=== PATIENT | female | born 1960 | race Caucasian/White ===

== ENCOUNTER 2016-10-26 10:21 | Emergency (ER) | payer MEDICAID ==
[~2016-10-26] VITALS: Ht 160 cm; Wt 47.9 kg
[2016-10-26] MEDS ORDERED: ASPIRIN 81 MG TABLET CHEW ONE (10:59)
[2016-10-26] MEDS ORDERED: NITROGLYCERIN SINGLE TAB 0.4 MG SL ONE (10:59)
[2016-10-26] MEDS ORDERED: ASPIRIN 81 MG TABLET CHEW PO ONE (11:00)
[2016-10-26] MEDS ORDERED: SODIUM CHLORIDE FLUSH 10ML SYR IVF ONE (11:00)
[2016-10-26] MEDS: NITROGLYCERIN SINGLE TAB 0.4 MG SL PRN ×3 (11:05→11:20)
[2016-10-26] MEDS ORDERED: METH500T97 PO (11:08)
[2016-10-26] MEDS ORDERED: GABA300C10 PO (11:08)
[2016-10-26 11:19] LABS: HEMOGLOBIN 15.4 g/dL (11.7-16.4)
[2016-10-26 11:28] LABS: ASPARTATE AMINO TRANSFERASE 17 U/L (15-37); BLOOD UREA NITROGEN 10 mg/dL (7-18)
[2016-10-26 12:15] VITALS: BP 110/72
== END 2016-10-26 12:55 | disposition left against medical advice (07) ==
LOC: ED 12:14
DX: J20.9 Acute bronchitis, unspecified (principal); B96.89 Other specified bacterial agents as the cause of diseases classified elsewhere; I20.9 Angina pectoris, unspecified; M54.30 Sciatica, unspecified side
CPT/HCPCS: 36415; 71010; 80053; 83605; 83880; 84484; 85025; 85379; 85610; 85730; 87040; 93005

== ENCOUNTER 2017-02-09 11:30 | Emergency (ER) | payer MEDICAID ==
[~2017-02-09] VITALS: Ht 157.5 cm; Wt 48.9 kg
[~2017-02-09 11:30] MED LIST: GABA300C10 PO; METH500T97 PO
[2017-02-09 13:02] VITALS: BP 112/78
[2017-02-09] MEDS ORDERED: AZITHROMYCIN 500 MG TABLET PO ONE (13:30)
[2017-02-09] MEDS ORDERED: CEFTRIAXONE 250 MG IM ONE (13:30)
[2017-02-09] MEDS ORDERED: CEFTRIAXONE 250 MG ONE (13:32)
[2017-02-09] MEDS ORDERED: AZITHROMYCIN 250 MG TABLET ONE (13:33)
== END 2017-02-09 13:50 | disposition home or self-care (01) ==
LOC: ED 13:00
DX: N89.8 Other specified noninflammatory disorders of vagina (principal); F17.200 Nicotine dependence, unspecified, uncomplicated
CPT/HCPCS: 87210; 87491; 87591; 87808; 96372; 99284; J0696

== ENCOUNTER 2017-10-10 15:53 | Inpatient (IN) | payer BC, MEDICAID ==
[~2017-10-10] VITALS: Ht 160 cm; Wt 51.1 kg
[2017-10-10] MEDS ORDERED: CYCL-259 PO (16:34)
[2017-10-10] MEDS ORDERED: NAPR500T8 PO ×2 (16:34)
[2017-10-10] MEDS ORDERED: GABA400C PO (16:34)
[2017-10-10] MEDS ORDERED: NITR0.4T28 SL (16:34)
[2017-10-10] MEDS ORDERED: SODIUM CHLORIDE 0.9% 1,000ML IVBOLUS ONE (17:00)
[2017-10-10 17:02] LABS: BASOPHILS # (AUTO) 0.06 x10^3/uL (0-0.1); BASOPHILS % (AUTO) 1 % (0-1); EOSINOPHILS # (AUTO) 0.33 x10^3/uL (0-0.4); EOSINOPHILS % (AUTO) 4 % (1-7); LYMPHOCYTES # (AUTO) 2.82 x10^3/uL (1-3.4); LYMPHOCYTES % (AUTO) 35 % (22-44); MD NO; MEAN CORPUSCULAR HGB CONC 33.4 g/dL (32.4-35.8); MEAN CORPUSCULAR VOLUME 92.8 fL (80-100); MEAN PLATELET VOLUME 8.9 fL (7.4-10.4); MONOCYTES # (AUTO) 0.47 x10^3/uL (0.2-0.8); MONOCYTES % (AUTO) 6 % (2-9); NEUTROPHILS # (AUTO) 4.46 x10^3/uL (1.8-6.8); NEUTROPHILS % (AUTO) 55 % (42-75); PLATELET COUNT 243 x10^3/uL (130-400); RED BLOOD COUNT 4.46 x10^6/uL (3.82-5.3); RED CELL DISTRIBUTION WIDTH 13.9 % (9.6-15.2)
[2017-10-10 17:14] LABS: ALANINE AMINOTRANSFERASE 17 U/L (12-78); ALBUMIN 3.8 g/dL (3.4-5.0); ANION GAP 6 mmol/L (5-15); CALCIUM 8.1 mg/dL (8.5-10.1); CHLORIDE 110 mmol/L (98-107); CREATININE 0.68 mg/dL (0.55-1.02)
[2017-10-10 17:19] LABS: ALKALINE PHOSPHATASE 81 U/L (45-117); BILIRUBIN,TOTAL 0.4 mg/dL (0.2-1.0); TOTAL PROTEIN 6.8 g/dL (6.4-8.2); TROPONIN I < 0.015 ng/mL (0.000-0.045)
[2017-10-10] MEDS ORDERED: NICOTINE 21 MG/24 HR PATCH.TD24 TD SCH (17:30)
[2017-10-10] MEDS ORDERED: ENOXAPARIN 40 MG/0.4 ML SQ SCH (17:30)
[2017-10-10] MEDS ORDERED: MORPHINE SULFATE 4 MG/ML, 1ML IVPush PRN (17:30)
[2017-10-10] MEDS ORDERED: NITROGLYCERIN 0.4 MG BOTTLE (25 TABS) SL PRN (17:30)
[2017-10-10] MEDS ORDERED: SODIUM CHLORIDE FLUSH 10ML SYR IVF ONE (17:30)
[2017-10-10] MEDS ORDERED: NITROGLYCERIN 0.4 MG/SPRAY SL PRN (17:30)
[2017-10-10 18:45] VITALS: BP 134/72
[2017-10-10 19:11] LABS: TROPONIN I < 0.015 ng/mL (0.000-0.045)
[2017-10-10] MEDS ORDERED: CYCLOBENZAPRINE 10 MG TABLET PO SCH (21:00)
[2017-10-10] MEDS: GABAPENTIN 400 MG CAPSULE PO SCH (22:32)
[2017-10-11 00:59] VITALS: BP 101/61
[2017-10-11 01:26] LABS: TROPONIN I < 0.015 ng/mL (0.000-0.045)
[2017-10-11 05:14] LABS: CHOL/HDL RATIO 3.7; LDL/HDL RATIO 2.1 (0.5-3.0); THYROID STIMULATING HORMONE 11.4 mIU/L (0.358-3.740)
[2017-10-11] MEDS ORDERED: ASPIRIN 81 MG TABLET EC PO SCH (06:00)
[2017-10-11 08:00] VITALS: BP 118/70
[2017-10-11] MEDS: GABAPENTIN 400 MG CAPSULE PO SCH (08:01)
[2017-10-11] MEDS ORDERED: REGADENOSON 0.4 MG/5 ML SYRINGE ONE (08:10)
[2017-10-11 14:00] VITALS: BP 111/57
== END 2017-10-11 17:03 | disposition home or self-care (01) | DRG 880 ==
LOC: ED 17:16 → 5SO 17:17
PROVIDERS: ADMIT Internal Medicine; ATTEND Internal Medicine
DX: F41.9 Anxiety disorder, unspecified (principal); E02 Subclinical iodine-deficiency hypothyroidism; E78.5 Hyperlipidemia, unspecified; F17.210 Nicotine dependence, cigarettes, uncomplicated; G89.29 Other chronic pain; M19.90 Unspecified osteoarthritis, unspecified site; Z82.49 Family history of ischemic heart disease and other diseases of the circulatory system; R07.89 Other chest pain; Z98.51 Tubal ligation status
CPT/HCPCS: 36415; 71046; 78452; 80053; 80061; 84439; 84443; 84484; 85025; 93005; 93017; 99285; J1650; J2785; A9502; C9898

== ENCOUNTER 2018-08-06 13:49 | Emergency (ER) | payer BC ==
[~2018-08-06] VITALS: Ht 160 cm; Wt 48.4 kg
[~2018-08-06 13:49] MED LIST changes: +CYCL-259 PO; +GABA400C PO; +NAPR500T8 PO; +NITR0.4T28 SL
[2018-08-06 16:58] VITALS: BP 120/74
== END 2018-08-06 17:03 | disposition home or self-care (01) ==
LOC: ED 14:28
DX: G89.11 Acute pain due to trauma (principal); J18.0 Bronchopneumonia, unspecified organism; M25.562 Pain in left knee; X58.XXXA Exposure to other specified factors, initial encounter; Y93.89 Activity, other specified; Y92.89 Other specified places as the place of occurrence of the external cause; Y99.8 Other external cause status
CPT/HCPCS: 71046; 99283

== ENCOUNTER 2019-06-07 10:59 | Emergency (ER) | payer SELFPAY ==
[~2019-06-07] VITALS: Ht 157.5 cm; Wt 53.4 kg
[2019-06-07 12:11] LABS: RAPID INFLUENZA A Negative (Negative); RAPID INFLUENZA B Negative (Negative)
[2019-06-07] MEDS ORDERED: DEXAMETHASONE 4 MG TABLET PO ONE (12:30)
[2019-06-07] MEDS ORDERED: DEXAMETHASONE 4 MG TABLET ONE (12:41)
[2019-06-07 12:56] VITALS: BP 135/76
--- NOTE | 2019-06-07 13:10 | NUR ---
Patient/Caregiver given discharge instructions and they have confirmed that they understand the instructions. Patient ambulatory with steady gait.
== END 2019-06-07 13:11 | disposition home or self-care (01) ==
LOC: ED 12:58
DX: B34.9 Viral infection, unspecified (principal); F17.210 Nicotine dependence, cigarettes, uncomplicated; G89.29 Other chronic pain
CPT/HCPCS: 71046; 87400; 93005; 99284